=== PATIENT | female | born 1990 | race Asian ===

== ENCOUNTER 2017-04-25 11:22 | Inpatient (IN) | payer BC ==
[2017-04-25] MEDS ORDERED: Carboprost Tromethamine 250 MCG/1 ML Amp IM PRN (11:51)
[2017-04-25] MEDS ORDERED: Lidocaine 1% 50 ML MDV INJECT PRN (11:51)
[2017-04-25] MEDS ORDERED: Methylergonovine 0.2 MG/1 ML Amp IM PRN (11:51)
[2017-04-25] MEDS ORDERED: Misoprostol 200 MCG Tab PO PRN (11:51)
[2017-04-25] MEDS ORDERED: Sodium Chloride 0.9% 2.5 ML Syringe FLUSH PRN (11:51)
[2017-04-25] MEDS ORDERED: Water For Irrigation,Sterile 1,000 ML Container IRR PRN (11:51)
[2017-04-25] MEDS ORDERED: Nalbuphine 10 MG/1 ML Vial IVPUSH PRN (11:51)
[2017-04-25] MEDS ORDERED: Butorphanol 1 MG/ML SDV IVPUSH PRN (11:51)
[2017-04-25] MEDS ORDERED: Sodium Chloride 0.9% 10 ML Syringe FLUSH PRN (11:51)
[2017-04-25] MEDS: Lactated Ringers 1,000 ML IV SCH ×3 (12:00→13:51)
[2017-04-25] MEDS ORDERED: Oxytocin/0.9 % Sodium Chloride 30 UNIT/500 ML BAG IV SCH (12:00)
[2017-04-25] MEDS ORDERED: Ropivacaine 0.2% 2 MG/ML 20 ML SDV ONE (12:27)
[2017-04-25] MEDS ORDERED: fentaNYL 100 MCG/2 ML SDV ONE (12:29)
--- NOTE | 2017-04-25 13:52 | PCM.PREANE ---
Preanesthetic Assessment - Procedure Proposed Procedure: C. 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 - Review of Systems General: Other (active labor pains) Pulmonary: No Symptoms Cardiovascular: No Symptoms Gastrointestinal: No Symptoms, Other (limited GERD with , some nausea) Neurological: Other (labor pains) Other: Reports: None - Physical Assessment NPO Status Date: 04/25/17 NPO Status Time: 12:00 (water, no solids) Height: 5 ft 7 in Weight: 170 lb ASA Class: 2 Mental Status: Alert & Oriented x3 Airway Class: Mallampati = 2 Dentition: Reports: Normal Dentition Thyro-Mental Finger Breadths: 3 Mouth Opening Finger Breadths: 3 ROM/Head Extension: Limited/Partial (yazmin to labor) Lungs: Clear to Auscultation, Normal Respiratory Effort Cardiovascular: Regular Rate, Regular Rhythm, No Murmurs - Lab Values: Laboratory Last Values WBC 10.13 K/uL (4.0-11.0) 04/25/17 12:12 RBC 4.67 M/uL (4.30-5.90) 04/25/17 12:12 Hgb 13.7 g/dL (12.0-16.0) 04/25/17 12:12 Hct 40.6 % (36.0-46.0) 04/25/17 12:12 MCV 86.9 fL (80.0-98.0) 04/25/17 12:12 MCH 29.3 pg (27.0-32.0) 04/25/17 12:12 MCHC 33.7 g/dL (31.0-37.0) 04/25/17 12:12 RDW Std Deviation 41.4 fl (28.0-62.0) 04/25/17 12:12 RDW Coeff of Anjel 13 % (11.0-15.0) 04/25/17 12:12 Plt Count 170 K/uL (150-400) 04/25/17 12:12 MPV 11.40 fL (7.40-12.00) 04/25/17 12:12 Nucleated RBC % 0.0 /100WBC 04/25/17 12:12 Nucleated RBCs # 0 K/uL 04/25/17 12:12 Blood Type AB POSITIVE 04/25/17 12:12 Antibody Screen NEGATIVE 04/25/17 12:12 - Allergies Allergies/Adverse Reactions: Allergies Allergy/AdvReac Type Severity Reaction Status Date / Time No Known Allergies Allergy Verified 04/25/17 11:30 - Blood Blood Available: No Product(s) Available: None - Anesthesia Plan Pre-Op Medication Ordered: None - Acknowledgements Anesthesia Type Planned: Epidural Pt an Appropriate Candidate for the Planned Anesthesia: Yes Alternatives and Risks of Anesthesia Discussed w Pt/Guardian: Yes Pt/Guardian Understands and Agrees with Anesthesia Plan: Yes PreAnesthesia Questionnaire - Past Health History Medical/Surgical History: Denies 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 (IN 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) MEDS Current Meds: Current Medications Butorphanol Tartrate (Stadol) 1 mg IVPUSH Q1H PRN PRN Reason: Pain Carboprost Tromethamine (Hemabate Ds) 250 mcg IM ASDIRECTED PRN PRN Reason: Post Hemorrhage Lactated Ringer's (Ringers, Lactated) 1,000 mls @ 150 mls/hr IV ASDIRECTED [facility] Last Admin: 04/25/17 13:01 Dose: 500 mls/hr Oxytocin/Sodium Chloride (Oxytocin 30 Unit/500 Ml-Ns) 30 unit in 500 mls @ 500 mls/hr IV TITRATE [facility] Lidocaine HCl (Xylocaine 1%) 50 ml INJECT .ONCE PRN PRN Reason: Laceration repair Methylergonovine Maleate (Methergine) 0.2 mg IM ASDIRECTED PRN PRN Reason: Post Hemorrhage Misoprostol (Cytotec) 200 mcg PO .ONCE PRN PRN Reason: Post Hemorrhage Nalbuphine HCl (Nubain) 10 mg IVPUSH Q1H PRN PRN Reason: Pain (severe 7-10) Sodium Chloride (Saline Flush) 10 ml FLUSH ASDIRECTED PRN PRN Reason: Keep Vein Open Sodium Chloride (Saline Flush) 2.5 ml FLUSH ASDIRECTED PRN PRN Reason: Keep Vein Open Sterile Water (Sterile Water For Irrigation) 1,000 ml IRR ASDIRECTED PRN PRN Reason: delivery Discontinued Medications Fentanyl (Sublimaze) Confirm Administered Dose 100 mcg .ROUTE .STK-MED ONE Stop: 04/25/17 12:30 Ropivacaine (Naropin 0.2%) Confirm Administered Dose 20 ml .[address]TE .[facility] ONE Stop: 04/25/17 12:28
--- NOTE | 2017-04-25 13:54 | PCM.SN ---
- Free Text/Narrative Note: Stable course with initial dosing; subsequent Reid and check by attending. Starting continuous now (10 min at bedside)..
[2017-04-25] MEDS ORDERED: Ropivacaine HCl/PF 100 ML ONE (13:58)
[2017-04-25] MEDS ORDERED: Benzocaine/Menthol 20%-0.5% Spray 78 GM Cannister TOP PRN (18:48)
[2017-04-25] MEDS ORDERED: Bisacodyl 10 MG Supp RECTAL PRN (18:48)
[2017-04-25] MEDS ORDERED: Ibuprofen 400 MG Tab PO PRN (18:48)
[2017-04-25] MEDS ORDERED: Docusate Sodium 100 MG Cap PO PRN (18:48)
[2017-04-25] MEDS ORDERED: Lanolin 100% Cream 7 GM Tube TOP PRN (18:48)
[2017-04-25] MEDS ORDERED: Acetaminophen 500 MG Tab PO PRN ×2 (18:48)
[2017-04-25] MEDS ORDERED: Witch Hazel Medicated Pads 40/Jar TOP PRN (18:48)
--- NOTE | 2017-04-25 21:45 | PCM.SN ---
- Free Text/Narrative Note: called to remove epidural catheter. patient sitting up, steady tension on catheter and position changes for removal. catheter removed intact with tip. no complications
--- NOTE | 2017-04-25 21:45 | PCM48HPAN ---
Post Anesthesia Note - EVALUATION WITHIN 48HRS OF ANESTHETIC Vital Signs in Normal Range: Yes Patient Participated in Evaluation: Yes Respiratory Function Stable: Yes Airway Patent: Yes Cardiovascular Function Stable: Yes Hydration Status Stable: Yes Pain Control Satisfactory: Yes Nausea and Vomiting Control Satisfactory: Yes Mental Status Recovered: Yes
[2017-04-25] MEDS: Ibuprofen 800 MG Tab PO PRN (23:31)
--- NOTE | 2017-04-26 11:21 | PCM.PNPP ---
- General Info Date of Service: 04/26/17 Admission Dx/Problem (Free Text): 26yo P1 s/p PPD1 Subjective Update: Patient seen at bedside denies any problems today, she is attempting to breastfeed Functional Status: Reports: Pain Controlled, Tolerating Diet, Ambulating, Urinating - Review of Systems General: Reports: No Symptoms HEENT: Reports: No Symptoms Pulmonary: Reports: No Symptoms Cardiovascular: Reports: No Symptoms Gastrointestinal: Reports: No Symptoms Genitourinary: Reports: No Symptoms Musculoskeletal: Reports: No Symptoms Skin: Reports: No Symptoms Neurological: Reports: No Symptoms Psychiatric: Reports: No Symptoms - General Info Date of Service: 04/26/17 - Patient Data Vital Signs - Most Recent: Last Vital Signs Temp 37.3 C 04/26/17 08:00 Pulse 74 04/26/17 08:00 Resp 12 04/26/17 08:00 BP 104/55 L 04/26/17 08:00 Pulse Ox 95 04/26/17 08:00 Weight - Most Recent: 77.111 kg I&O - Last 24 Hours: Intake & Output 04/25/17 04/26/17 04/26/17 22:59 06:59 14:59 Output Total 500 Balance -500 Lab Results - Last 24 Hours: Laboratory Results - last 24 hr 04/25/17 04/25/17 04/26/17 Range/Units 12:12 12:12 05:05 WBC 10.13 (4.0-11.0) K/uL RBC 4.67 (4.30-5.90) M/uL Hgb 13.7 10.7 L (12.0-16.0) g/dL Hct 40.6 31.6 L (36.0-46.0) % MCV 86.9 (80.0-98.0) fL MCH 29.3 (27.0-32.0) pg MCHC 33.7 (31.0-37.0) g/dL RDW Std Deviation 41.4 (28.0-62.0) fl RDW Coeff of Anjel 13 (11.0-15.0) % Plt Count 170 (150-400) K/uL MPV 11.40 (7.40-12.00) fL Nucleated RBC % 0.0 /100WBC Nucleated RBCs # 0 K/uL Blood Type AB POSITIVE Antibody Screen NEGATIVE Med Orders - Current: Current Medications Acetaminophen (Tylenol Extra Strength) 500 mg PO Q4H PRN PRN Reason: Pain Acetaminophen (Tylenol Extra Strength) 1,000 mg PO Q4H PRN PRN Reason: Pain Benzocaine/Menthol (Dermoplast Pain Relief 20%-0.5% Paicines) 78 gm TOP ASDIRECTED PRN PRN Reason: Perineal Comfort Measure Last Admin: 04/25/17 23:27 Dose: 1 can Bisacodyl (Dulcolax) 10 mg RECTAL .ONCE PRN PRN Reason: Constipation Butorphanol Tartrate (Stadol) 1 mg IVPUSH Q1H PRN PRN Reason: Pain Carboprost Tromethamine (Hemabate Ds) 250 mcg IM ASDIRECTED PRN PRN Reason: Post Hemorrhage Docusate Sodium (Colace) 100 mg PO BID PRN PRN Reason: Constipation Emollient Ointment (Lansinoh Hpa) 0 gm TOP ASDIRECTED PRN PRN Reason: Sore Nipples Lactated Ringer's (Ringers, Lactated) 1,000 mls @ 150 mls/hr IV ASDIRECTED [facility] Last Admin: 04/25/17 13:51 Dose: 150 mls/hr Oxytocin/Sodium Chloride (Oxytocin 30 Unit/500 Ml-Ns) 30 unit in 500 mls @ 500 mls/hr IV TITRATE [facility] Last Admin: 04/25/17 17:35 Dose: 500 mls/hr Ibuprofen (Motrin) 400 mg PO Q4H PRN PRN Reason: Pain Ibuprofen (Motrin) 800 mg PO Q6H PRN PRN Reason: Pain Last Admin: 04/25/17 23:31 Dose: 800 mg Lidocaine HCl (Xylocaine 1%) 50 ml INJECT .ONCE PRN PRN Reason: Laceration repair Last Admin: 04/25/17 17:44 Dose: 50 ml Methylergonovine Maleate (Methergine) 0.2 mg IM ASDIRECTED PRN PRN Reason: Post Hemorrhage Misoprostol (Cytotec) 200 mcg PO .ONCE PRN PRN Reason: Post Hemorrhage Nalbuphine HCl (Nubain) 10 mg IVPUSH Q1H PRN PRN Reason: Pain (severe 7-10) Oxycodone HCl (Oxycodone) 5 mg PO Q2H PRN PRN Reason: Pain Sodium Chloride (Saline Flush) 10 ml FLUSH ASDIRECTED PRN PRN Reason: Keep Vein Open Sodium Chloride (Saline Flush) 2.5 ml FLUSH ASDIRECTED PRN PRN Reason: Keep Vein Open Sterile Water (Sterile Water For Irrigation) 1,000 ml IRR ASDIRECTED PRN PRN Reason: delivery Last Admin: 04/25/17 17:30 Dose: 1,000 ml Witch Irca (Tucks) 1 pad TOP ASDIRECTED PRN PRN Reason: comfort care Discontinued Medications Fentanyl (Sublimaze) Confirm Administered Dose 100 mcg .ROUTE .STK-MED ONE Stop: 04/25/17 12:30 Last Admin: 04/26/17 01:01 Dose: Not Given Ropivacaine (Naropin 0.2%) Confirm Administered Dose 100 mls @ as directed .ROUTE .STK-MED ONE Stop: 04/25/17 13:59 Last Admin: 04/26/17 01:02 Dose: Not Given Ropivacaine (Naropin 0.2%) Confirm Administered Dose 20 ml .ROUTE .STK-MED ONE Stop: 04/25/17 12:28 Last Admin: 04/26/17 01:01 Dose: Not Given - Infant Interaction Infant Disposition, : at Bedside Infant Feeding: Attempted ; Nursed Fair/Poor Support Person: , Mother - Recovery Exam Fundal Tone: Firm Fundal Level: 1 Fingerbreadths Below Umbilicus Fundal Placement: Midline Lochia Amount: Scant Lochia Color: Rubra/Red Perineum Description: Intact, Minimal Bruising/Swelling Other Perinuem Description: 2nd degree laceration Episiotomy/Laceration: Approximated Bladder Status: Nonpalpable Urinary Elimination: Voided - Exam General: Alert Lungs: Clear to Auscultation, Normal Respiratory Effort Cardiovascular: Regular Rate, Regular Rhythm GI/Abdominal Exam: Normal Bowel Sounds Extremities: Normal Inspection Psy/Mental Status: Alert - Problem List & Annotations (1) Vaginal delivery SNOMED Code(s): 793282678 Code(s): O80 - ENCOUNTER FOR FULL-TERM UNCOMPLICATED DELIVERY Status: Acute Current Visit: Yes - Problem List Review Problem List Initiated/Reviewed/Updated: Yes - My Orders Last 24 Hours: My Active Orders 04/25/17 11:30 Patient Status [ADT] Routine Up ad Josephine [RC] ASDIRECTED Vital Signs [RC] PER UNIT ROUTINE Resuscitation Status Routine 04/25/17 11:51 Patient Status [ADT] Routine May Shower [RC] ASDIRECTED Notify Provider [RC] PRN Up ad Josephine [RC] ASDIRECTED Vital Signs [RC] PER UNIT ROUTINE Butorphanol [Stadol] 1 mg IVPUSH Q1H PRN Carboprost Tromethamine [Hemabate DS] 250 mcg IM ASDIRECTED PRN Lidocaine 1% [Xylocaine 1%] 50 ml INJECT .ONCE PRN Methylergonovine [Methergine] 0.2 mg IM ASDIRECTED PRN Misoprostol [Cytotec] 200 mcg PO .ONCE PRN Nalbuphine [Nubain] 10 mg IVPUSH Q1H PRN Sodium Chloride 0.9% [Saline Flush] 10 ml FLUSH ASDIRECTED PRN Sodium Chloride 0.9% [Saline Flush] 2.5 ml FLUSH ASDIRECTED PRN Water For Irrigation,Sterile [Sterile Water for Irrigation] 1,000 ml IRR ASDIRECTED PRN Scalp Electrode [WOMSER] Per Unit Routine Peripheral IV Insertion Adult [OM.PC] Routine 04/25/17 12:00 Lactated Ringers [Ringers, Lactated] 1,000 ml IV ASDIRECTED Oxytocin/0.9 % Sodium Chloride [Oxytocin 30 Unit/500 ML-NS] 30 unit in 500 ml IV TITRATE 04/25/17 18:48 Acetaminophen [Tylenol Extra Strength] 1,000 mg PO Q4H PRN Acetaminophen [Tylenol Extra Strength] 500 mg PO Q4H PRN Benzocaine/Menthol [Dermoplast Pain Relief 20%-0.5% Paicines] 78 gm TOP ASDIRECTED PRN Bisacodyl [Dulcolax] 10 mg RECTAL .ONCE PRN Docusate Sodium [Colace] 100 mg PO BID PRN Ibuprofen [Motrin] 400 mg PO Q4H PRN Ibuprofen [Motrin] 800 mg PO Q6H PRN Lanolin [Lansinoh HPA] See Dose Instructions TOP ASDIRECTED PRN Witch [place] [Tucks] 1 pad TOP ASDIRECTED PRN oxyCODONE 5 mg PO Q2H PRN 04/25/17 18:49 Patient Status [ADT] Routine May Shower [RC] ASDIRECTED Up ad Josephine [RC] ASDIRECTED Vital Signs [RC] PER UNIT ROUTINE Assess Lochia [WOMSER] Per Unit Routine Assess Uterine Involution [WOMSER] Per Unit Routine Peripheral IV Discontinue [OM.PC] Routine 04/26/17 Breakfast Regular Diet [DIET] - Assessment Assessment:: 26 yo P1 PPD1 , stable , normal lochia - Plan Plan:: Encourage Continue vitamins and iron Pain control with OTC Motrin and tylenol visit in 6 weeks Nothing in the vagina for 6 weeks
--- NOTE | 2017-04-26 13:53 | OR ---
SURGEON: RACHEL MCCABE DATE OF PROCEDURE: 04/25/2017 PREOPERATIVE DIAGNOSES: A 26-year-old, G1, para 0, at 39w1d , admitted in active labor, GBS negative . POSTOPERATIVE DIAGNOSIS: Status post normal spontaneous vaginal delivery.. ESTIMATED BLOOD LOSS: 400. FINDING: Live male delivered at 1734 with score of 8 and 9, weight was 3390 g. EBL was 400. Normal 3-vessel cord noted ANESTHESIA: Epidural. HISTORY: She is a 26-year-old, G1, P0, at 39 weeks 1 day.. She was a low-risk patient. The patient came in active labor, was found to be 6 cm dilated. The patient was reevaluated and was noted to be 7 cm dilated. At this point artificial rupture of the membrane was performed. Clear fluid was noted. The patient was then eventually evaluated and was found to be fully dilated. The patient's tracing was category 1 throughout the course of delivery. PROCEDURE The patient was placed in dorsal lithotomy position. she was encouraged to push. With good pushing effort, the head was delivered, followed subsequently by the anterior shoulder and then posterior shoulder and the body of the was delivered. Infant was placed on the abdomen of the mother. Delayed cord clamping was performed. The placenta was then delivered intact with controlled cord traction. 3-vessel cord was noted with intact placenta and on inspection of the perineum, a 2nd degree laceration was noted and sutured with 2-0 Caprosyn. Upon inspection, hemostasis was noted and patient was cleane. All instrument and pad counts were correct x2. Dr. Mccabe was present for the entire procedure. DELPHINE MEJIA /[id number] [facility] CENTERReynold
[2017-04-26] MEDS: Ibuprofen 800 MG Tab PO PRN (14:05)
[2017-04-26] MEDS: oxyCODONE 5 MG Tab PO PRN ×2 (15:44→19:57)
== END 2017-04-26 20:45 | disposition home or self-care (01) | DRG 560 ==
LOC: MW.OBCHECK 11:22 → MW.OB 11:23 → MW.OBCHECK 11:51 → MW.OB 12:39 → OBSVTOIN 17:34 → MW.OB 22:15
PROVIDERS: ADMIT Obstetrics & Gynecology; ATTEND Obstetrics & Gynecology
PROC: 10E0XZZ Delivery of Products of Conception, External Approach (ICD-10-PCS; principal; 2017-04-25)
PROC: 10907ZC Drainage of Amniotic Fluid, Therapeutic from Products of Conception, Via Natural or Artificial Opening (ICD-10-PCS; 2017-04-25)
PROC: 0KQM0ZZ Repair Perineum Muscle, Open Approach (ICD-10-PCS; 2017-04-25)
DX: O70.1 Second degree perineal laceration during delivery (principal); Z3A.39 39 weeks gestation of pregnancy; Z37.0 Single live birth
CPT/HCPCS: 36415; 51702; 59025; 59409; 85014; 85018; 85027; 86850; 86900; 86901; A9270-GY; J2590; J7120